=== PATIENT | male | born 1995 | race Two or more races ===

== ENCOUNTER 2022-08-02 01:54 | Emergency (ER) | payer OTHER ==
[~2022-08-02] VITALS: Ht 188 cm; Wt 113.0 kg
[2022-08-02 03:29] LABS: Urine Bacteria NONE SEEN /hpf (None Seen); Urine Blood Negative /uL (Negative); Urine Mucus MODERATE (None Seen); Urine Specific Gravity 1.038 (1.001-1.035); Urine WBC 1 /hpf (0 - 3)
[2022-08-02 03:40] LABS: Albumin 3.9 g/dL (3.4-5.0); Calcium 9.4 mg/dL (8.5-10.1); Potassium 4.1 mmol/L (3.5-5.1)
[2022-08-02 03:42] LABS: Basophils # (auto) 0 10 ^3/uL (0-0.2); Basophils % (auto) 0.4 % (0.0-2.0); Eosinophils # (auto) 0.1 10 ^3/uL (0-0.8); Eosinophils % (auto) 0.8 % (0.0-7.0); Hematocrit 47.1 % (41.0-53.0); Hemoglobin 16.4 g/dL (13.5-17.5); Lymphocytes # (auto) 1.3 10 ^3/uL (0.4-5.4); Mean Corpuscular Hemoglobin 29.2 pg (28.0-32.0); Mean Corpuscular Hgb Conc. 34.8 g/dL (32.0-36.0); Mean Corpuscular Volume 84.1 fL (80.0-100.0); Monocytes # (auto) 0.5 10 ^3/uL (0-1.3); Monocytes % (auto) 5.9 % (0.0-12.0); Neutrophils # (auto) 6.2 10 ^3/uL (1.6-8.6); Neutrophils % (auto) 76.9 % (37.0-80.0); Nucleated Red Blood Cells % 1.7 %; Red Blood Cells 5.61 10^6/uL (4.5-5.90); Red Cell Distribution Width 13.1 % (11.8-14.3)
[2022-08-02 03:45] LABS: BUN/Creatinine Ratio 22.6; Bilirubin, Total 1.2 mg/dL (0.2-1.0); Total Protein 7.8 g/dL (6.4-8.2)
[2022-08-02] MEDS ORDERED: IBUP800T26 PO (06:23)
[2022-08-02] MEDS ORDERED: ONDA-144 PO (06:23)
[2022-08-02] MEDS ORDERED: KETOROLAC TROMETH 30 MG/ML 1ML VIAL IM ONE (06:45)
[2022-08-02] MEDS ORDERED: ONDANSETRON ODT 4 MG TAB PO ONE (06:45)
[2022-08-02 07:05] VITALS: BP 131/87
== END 2022-08-02 07:07 | disposition home or self-care (01) ==
LOC: ER 01:54
DX: K80.20 Calculus of gallbladder without cholecystitis without obstruction (principal); Z88.0 Allergy status to penicillin
CPT/HCPCS: 36415; 74176; 80053; 81001; 83690; 85025; 96372; 99284; J1885; Q0162